=== PATIENT | female | born 1945 | race Caucasian/White ===

== ENCOUNTER 2016-10-22 08:50 | Day surgery (SDC) | payer MEDICARE, OTHER ==
[~2016-10-22 08:50] MED LIST: Buffered Lidocaine 0.9% SYRIN* 5 ML/SYR SYRINGE INTRADERM ONE; Famotidine IV* 10 MG/ML 2 ML (20 mg) IV ONE
[2016-10-22] MEDS ORDERED: Famotidine IV* 10 MG/ML 2 ML (20 mg) ONE (09:08)
[2016-10-22] MEDS ORDERED: Buffered Lidocaine 0.9% SYRIN* 5 ML/SYR SYRINGE ONE (09:08)
[2016-10-22] MEDS ORDERED: KETAMINE HCL* 50 MG/ML 10 ML VIAL ONE (10:21)
[2016-10-22] MEDS ORDERED: fentaNYL* 50 MCG/ML 2 ML VIAL (100 MCG VIAL) ONE (10:21)
[2016-10-22] MEDS ORDERED: Midazolam* 1 MG/ML 5 ML VIAL (5 MG) ONE (10:21)
[2016-10-22] MEDS ORDERED: Lidocaine 1% INJ* 10 MG/ML 30 ML SDV ONE (10:52)
[2016-10-22] MEDS ORDERED: Clindamycin 900 MG IVPREMIX(* 900 MG/50 ML SDV IV ONE (11:08)
[2016-10-22] MEDS ORDERED: Propofol* 10 MG/ML 20 ML BTL IV PUSH ONE (12:10)
[2016-10-22] MEDS ORDERED: Lidocaine 2% PF * 5 ML VIAL ONE (12:10)
[2016-10-22] MEDS ORDERED: fentaNYL* 50 MCG/ML 2 ML VIAL (100 MCG VIAL) IV PRN (12:22)
[2016-10-22] MEDS ORDERED: Ondansetron INJ* 2 MG/ML VIAL IV PRN (12:22)
[2016-10-22] MEDS ORDERED: oxyCODONE/Acetamin 5/325 MG* TAB PO PRN (12:22)
[2016-10-22] MEDS ORDERED: Morphine INJ* 2 MG/ML 1 ML SYRINGE IV PRN (12:22)
[2016-10-22] MEDS ORDERED: PROCHLORPERAZINE INJ 5 MG/ML 2 ML VIAL IV PRN (12:22)
--- NOTE | 2016-10-22 12:25 | SURGPN ---
Brief Operative Note - Surgery Procedures: OPERATIVE REPORT PRE-OP: Pseudomyxoma Peritonei POST-OP: Same PROCEDURE: Insertion of left chest wall 8F (subclavian vein) PowerPort SURGEON: MD Edinson ANESTHESIA:Local with MAC [place] ASST: none IVF: min EBL: min SPECIMEN: none DRAIN: none WOUND CLASS: One COMPLICATIONS: none TO PACU
[2016-10-22] MEDS ORDERED: Ondansetron INJ* 2 MG/ML VIAL ONE (12:55)
--- NOTE | 2016-10-22 12:59 | RAD ---
INDICATION: Status post left-sided port placement COMPARISON: Same day intraoperative fluoroscopy TECHNIQUE: Single AP portable view of the chest was obtained. FINDINGS: Image quality is compromised due to the relative inferiority of a portable chest x-ray. There is a left subclavian vein Mediport in place with the tip terminating at the cavoatrial junction. There is no pneumothorax. IMPRESSION: Left subclavian vein Mediport with tip terminating at the cavoatrial junction without radiographically apparent acute abnormalities.
--- NOTE | 2016-10-22 13:06 | RAD ---
INDICATION: Power port placement COMPARISONS: None relevant TECHNIQUE: Fluoroscopy was provided for a vascular access procedure. Total fluoroscopy time is: 31 seconds FINDINGS: A single spot image demonstrates a left sided chest port with the tip overlying the cavoatrial junction IMPRESSION: FLUOROSCOPY WAS PROVIDED FOR A VASCULAR ACCESS PROCEDURE CPT II Codes: 6045F
[2016-10-22 14:17] VITALS: BP 124/61
--- NOTE | 2016-10-23 13:03 | OP ---
CC: TREMAYNE Hernandez * DATE OF OPERATION: 10/22/16 - [facility] DATE OF : 49 SURGEON: Jeffrey Neves MD TACKER ELASTIC BAND: None. ANESTHESIOLOGIST: Bryn Shabazz MD ANESTHESIA: Local with monitored anesthesia care. 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 OPERATIVE PROCEDURE: Insertion of an 8-Azeri left subclavian vein PowerPort, needle in. ESTIMATED BLOOD LOSS: Minimal. SPECIMENS: None. COMPLICATIONS: None. DRAINS: None. WOUND CLASSIFICATION: I. DESCRIPTION OF PROCEDURE: Written informed consent was obtained, the left chest wall was marked with indelible ink, and preoperative antibiotics were administered. The patient was taken to the operating room and placed in the supine position. Sequential compression devices and a warming blanket were applied. The left and right chest and neck were prepped and draped in the usual sterile fashion. Time-out verification was completed. Next, the patient was placed in Trendelenburg position and 1% lidocaine with epinephrine was used to infiltrate the left anterior chest wall just below the midclavicular area. An 18-gauge Cook needle was then used to puncture the subclavian vein on the third pass with good blood return. The guidewire was inserted without difficulty and confirmed by fluoroscopy to be in the superior vena cava. Next, a small transverse incision was made just below the initial puncture site. The pocket was made inferiorly to this large enough to fit the port. The catheter was then tunneled from the port site to the puncture site and then placed into the central system at the junction of the superior vena cava in the right atrium using the dilator and the peel-away sheath technique. The catheter was then cut to the appropriate length and attached to the port, which was then placed in the subcutaneous pocket and sutured to the underlying fascia with two separate 2-0 Prolene sutures. The catheter withdrew blood well and was flushed nicely without difficulty. It was flushed with heparin solution. Hemostasis was assured. The wound was closed in layers with 3-0 and 4-0 Polysorb suture and then a right angled Rodriguez needle was used to access the port and once again flushed with heparin. This was secured with a sterile occlusive dressing in anticipation of using of chemotherapy administration tomorrow. The patient tolerated the procedure well, was taken to the recovery room in stable condition. Postprocedural chest x-ray showed the catheter to be in good position with no evidence of pneumothorax. [id number]/[facility] #: [id number] FREDY
== END 2016-10-22 14:33 | disposition home or self-care (01) ==
LOC: OR 08:50
PROVIDERS: ATTEND Surgery
DX: C78.6 Secondary malignant neoplasm of retroperitoneum and peritoneum (principal); I10 Essential (primary) hypertension
CPT/HCPCS: 71010; C1788; J1642; J2001; J2250; J2405; J2704; J3010

== ENCOUNTER 2018-11-24 13:23 | Inpatient (IN) | payer MEDICARE, BC ==
[2018-11-24] MEDS ORDERED: Ondansetron INJ* 2 MG/ML VIAL IV ONE (13:33)
[2018-11-24] MEDS ORDERED: NS 0.9% 1000 ML** 1,000 ML IV ONE (13:33)
[2018-11-24] MEDS ORDERED: Pantoprazole IV* 40 MG IV ONE (13:33)
--- NOTE | 2018-11-24 13:34 | ED ---
GI/ HPI - HPI Summary HPI Summary: This pt is a 72 y/o female presenting to [facility] c/o hematemesis today. 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 states that this morning she took a shower and felt like fainting. Pt laid on the bathroom floor after her shower and had an episode of emesis. Emesis is described as bloody and dark. Pt reports she has been feeling dehydrated, weak and has had black stools. Denies SOB. Denies nausea now. Pt states her abd distension has been unchanged. Pt was supposed to follow up with Dr. Miller today at 14:00 but was told to come to the ED instead. Denies taking any recent NSAIDs, such as aspirin or ibuprofen. Her last colonoscopy was in August 2016. - History of Current Complaint Stated Complaint: VOMITING BLOOD/WEAKNESS PER PT DAUGHTER Hx Obtained From: Patient Onset/Duration: Still Present Current Severity: Moderate Associated Signs and Symptoms: Positive: Hematemesis, Weakness - generalized, Vomiting, Melena. Negative: Fever Aggravating Factor(s): Nothing Alleviating Factor(s): Nothing - Allergy/Home Medications Allergies/Adverse Reactions: Allergies Allergy/AdvReac Type Severity Reaction Status Date / Time Penicillins Allergy Severe Hallucinati Verified 11/24/18 13:32 ons Home Medications: Home Medications Ascorbic Acid TAB* [Vitamin C TAB*] 1,000 mg PO DAILY 11/24/18 [History Confirmed 11/24/18] Calcium Carbonate [Calcium] 600 mg PO DAILY 11/24/18 [History Confirmed 11/24/18 ] Ferrous Sulfate TAB* 325 mg PO DAILY 11/24/18 [History Confirmed 11/24/18] Gabapentin CAP(*) [Neurontin 100 mg CAP(*)] 300 mg PO QPM 11/24/18 [History Confirmed 11/24/18] Multivitamins/Minerals TAB* [Theragran/minerals TAB*] 1 tab PO DAILY 11/24/18 [ History Confirmed 11/24/18] Mv,Grupo,Iron,Mn/Folic Acid/Chol [Hair, Skin and Nails Capsule] 1 each PO DAILY [History Confirmed 11/24/18] Potassium Chlor TAB (NF) [Kaon-Cl-10 TAB (NF)] 20 meq PO DAILY 11/24/18 [ History Confirmed 11/24/18] PMH/Surg Hx/FS Hx/Imm Hx Endocrine/Hematology History: Denies: Hx Diabetes Cardiovascular History: Denies: Hx Hypertension GI History: Reports: Other GI Disorders - tumors around intestines History: Reports: Other Problems/Disorders - hx of UTI, none in 3 years Denies: Hx Renal Disease Sensory History: Reports: Hx Cataracts - bilat very slow growing, Hx Contacts or Glasses Denies: Hx Hearing Aid Opthamlomology History: Reports: Hx Cataracts - bilat very slow growing, Hx Contacts or Glasses - Cancer History Cancer Type, Location and Year: COLON Hx Chemotherapy: No - will be starting after port placed on tues - Surgical History Surgery Procedure, Year, and Place: 38 years ago hysterectomy and appendix removal. 09/06/2016 exploratory of abdomen (for pseudomyexoma peritoni - removed fluid, but was unable to remove any of the tumors), colorectal- [facility]. POWERPORT 10/22/16 Hx Anesthesia Reactions: No - Family History Family History: Sister with hypercholesterolemia. - Social History Alcohol Use: None Substance Use Type: Reports: None Smoking Status (MU): Never Smoked Tobacco Review of Systems Negative: Fever, Chills Negative: Shortness Of Breath Gastrointestinal: Other - POSITIVE: melena, hematemesis Positive: Vomiting Positive: Weakness All Other Systems Reviewed And Are Negative: Yes Physical Exam - Summary Physical Exam Summary: VITAL SIGNS: Reviewed. GENERAL: Patient is a well-developed and pale female in no acute distress. Patient is not in any acute respiratory distress. HEAD AND FACE: No signs of trauma. No ecchymosis, hematomas or skull depressions. No sinus tenderness. EYES: PERRLA, EOMI x 2. Patient has pale conjunctiva. No nystagmus. EARS: Hearing grossly intact. Ear canals and tympanic membranes are within normal limits. MOUTH: Oropharynx within normal limits. NECK: Supple, trachea is midline, no adenopathy, no JVD, no carotid bruit, no c- spine tenderness, neck with full ROM. CHEST: Symmetric, no tenderness at palpation. LUNGS: Decreased breath sounds bilaterally. CVS: Regular rate and rhythm, S1 and S2 present, no murmurs or gallops appreciated. ABDOMEN: Soft, non-tender. Abdomen is significantly distended with decreased bowel sounds. No rebound, no guarding, and no masses palpated. RECTAL EXAM: Una Brothers, RN, is present as female grand jury deputy sheriff. Patient has melena on exam. EXTREMITIES: FROM in all major joints, no edema, no cyanosis or clubbing. NEURO: Alert and oriented x 3. No acute neurological deficits. Speech is normal and follows commands. SKIN: Dry and warm. Triage Information Reviewed: Yes Vital Signs On Initial Exam: Initial Vitals Temp Pulse Resp BP Pulse Ox 98.2 F 108 18 149/75 99 11/24/18 13:27 11/24/18 13:27 11/24/18 13:27 11/24/18 13:27 11/24/18 13:27 Vital Signs Reviewed: Yes Diagnostics - Laboratory Result Diagrams: 11/25/18 04:59 11/25/18 04:59 Lab Statement: Any lab studies that have been ordered have been reviewed, and results considered in the medical decision making process. - EKG 13:58 Cardiac Rate: NL - at 98 bpm EKG Rhythm: Sinus Rhythm EKG Comparison: Other - No prior EKG for comparison. Summary of EKG Findings: No ST elevations. Normal axis. GIGU Course/Dx - Course Assessment/Plan: This pt is a 72 y/o female presenting to [facility] c/o hematemesis today. 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 states that this morning she took a shower and felt like fainting. Pt laid on the bathroom floor after her shower and had an episode of emesis. Emesis is described as bloody and dark. Pt reports she has been feeling dehydrated, weak and has had black stools. Denies SOB. Denies nausea now. Pt states her abd distension has been unchanged. Pt was supposed to follow up with Dr. Miller today at 14:00 but was told to come to the ED instead. Denies taking any recent NSAIDs, such as aspirin or ibuprofen. Her last colonoscopy was in July/August 2016. Blood test shows a RBCs of 2.7, hemoglobin 7.1, hematocrit 22, MCV 77 and platelets 368. INR is 1.24, potassium 3.4, BUN 27, glucose 145, magnesium 1.7. The CRP is 71.6. The in the ED course the patient was immediately placed in a industrial ecologist, 2 IV access were obtained. I gave the patient IV fluids, Protonix 80 mg IV, and Zofran 8 mg for the nausea and vomiting. After these medications the patients symptoms have improved. Guaic is positive. Therefore, I believe that the patient is having a GI bleed. I discussed my physical exam and findings with Dr. Nguyen from oncology and he recommends a blood transfusion due to the active bleeding. He does not recommend a GI consult at this point because there were talks about hospice care at this point. Therefore I discussed the findings and test results with the patient and the patients family members and decide if the patient is a candidate for a colonoscopy. Therefore the patient will be admitted to Dr. Nguyen services. Consent for the blood transfusion was obtained and is in the chart. The benefits and risks were discussed with the patient. - Diagnoses Provider Diagnoses: GI bleed - Physician Notifications Discussed Care Of Patient With: Chad Nguyen Time Discussed With Above Provider: 14:46 Instructed by Provider To: Other - Discussed the case with Dr. Nguyen, oncologist , who reports they were talking about hospice care and no transfusion. Dr. Nguyen will come see the pt in the ED and recommends transfusion. - Critical Care Time Critical Care Time: 30-74 min Discharge ED - Sign-Out/Discharge Documenting (check all that apply): Patient Departure - Admit to [facility] Patient Received Moderate/Deep Sedation with Procedure: No - Discharge Plan Condition: Stable Disposition: ADMITTED TO [facility] - Billing Disposition and Condition Condition: STABLE Disposition: Admitted to [facility] - Attestation Statements Document Initiated by Batool: Yes Documenting Scribe: Renee Tomlinson Provider For Whom Batool is Documenting (Include Credential): Itz Duvall MD Scribe Attestation: Renee Acevedo scribed for Itz Duvall MD on 11/25/18 at 0749. Scribe Documentation Reviewed: Yes Provider Attestation: The documentation as recorded by the Renee brown accurately reflects the service I personally performed and the decisions made by me, Itz Duvall MD Status of Scribjenny Document: Viewed
[2018-11-24 14:00] LABS: ABS Lymphocytes 0.6 10^3/ul (1.0-4.8); ABS Monocytes 0.5 10^3/ul (0-0.8); ABS Neutrophils 6.9 10^3/ul (1.5-7.7); Hematocrit 22 % (35-47); Hemoglobin 7.1 g/dL (12.0-16.0); Lymphocyte % 7.9 %; Mean Corpuscular HGB Conc 33 g/dL (31-36); Mean Corpuscular Hemoglobin 26 pg (27-31); Mean Corpuscular Volume 77 fL (80-97); Mean Platelet Volume 6.5 fL (7.4-10.4); Platelet Count 368 10^3/uL (150-450); Red Blood Count 2.79 10^6 /uL (3.70-4.87); Red Cell Distribution Width 17 % (10-15); White Blood Count 8.1 10^3/uL (3.5-10.8)
[2018-11-24 14:15] LABS: Activated Partial Thrombo Time 31.8 seconds (26.0-38.0); INR 1.24 (0.82-1.09)
[2018-11-24 14:18] LABS: Albumin/Globulin Ratio 0.8 (1-3); BUN/Creatinine Ratio 45.8 (8-20); C Reactive Protein 71.6 mg/L (<8.01); Calcium 8.7 mg/dL (8.6-10.3); EGFR African American 121.9 (>60); EGFR Non-African American 100.8 (>60); Globulin 3.8 g/dL (2-4); Magnesium 1.7 mg/dL (1.9-2.7); Potassium 3.4 mmol/L (3.5-5.0); Total Bilirubin 0.4 mg/dL (0.2-1.0); Total Protein 6.8 g/dL (6.4-8.9)
[2018-11-24] MEDS ORDERED: Morphine INJ* 2 MG/ML 1 ML SYRINGE (TWO MG - NEW SYRINGE VERSION) IV PRN (15:46)
[2018-11-24] MEDS ORDERED: Acetaminophen TAB* 325 MG PO PRN (15:46)
[2018-11-24] MEDS ORDERED: Ondansetron INJ* 2 MG/ML VIAL IV PRN (15:46)
[2018-11-24] MEDS ORDERED: Magnesium Sulfate IV* 3 GM in NS 0.9% 100 ML* 100 ML IVPB ONE (15:52)
[2018-11-24] MEDS: Gabapentin CAP(*) 300 MG PO SCH (18:20)
[2018-11-24 19:36] LABS: ABS Lymphocytes 0.9 10^3/ul (1.0-4.8); ABS Monocytes 0.5 10^3/ul (0-0.8); ABS Neutrophils 5.5 10^3/ul (1.5-7.7); Hematocrit 25 % (35-47); Hemoglobin 8.3 g/dL (12.0-16.0); Lymphocyte % 13.3 %; Mean Corpuscular HGB Conc 34 g/dL (31-36); Mean Corpuscular Hemoglobin 27 pg (27-31); Mean Corpuscular Volume 79 fL (80-97); Mean Platelet Volume 6.7 fL (7.4-10.4); Platelet Count 366 10^3/uL (150-450); Red Blood Count 3.12 10^6 /uL (3.70-4.87); Red Cell Distribution Width 18 % (10-15)
[2018-11-24] MEDS: Pantoprazole* 80 mg IN NS 80 MG/250 ML BAG IV SCH (22:34)
[2018-11-24] MEDS: Zolpidem TAB* 5 MG PO SCH (22:40)
[2018-11-25] MEDS: NS 0.9% w/ 40 Meq KCL 1000 ML* 1,000 ML IV SCH ×3 (03:04→21:01)
[2018-11-25] MEDS: Pantoprazole* 80 mg IN NS 80 MG/250 ML BAG IV SCH ×2 (03:04→09:18)
[2018-11-25 03:56] LABS: Urine Appearance Cloudy; Urine Bacteria Absent (Absent); Urine Bilirubin Negative (Negative); Urine Blood Negative (Negative); Urine Color Yellow; Urine Glucose Negative (Negative); Urine Ketones Negative (Negative); Urine Nitrite Negative (Negative); Urine Protein Negative (Negative); Urine Red Blood Cell Trace(0-2/hpf) (Absent); Urine Specific Gravity 1.028 (1.010-1.030); Urine Squamous Epithelial Cell Present (Absent); Urine Urobilinogen Negative (Negative); Urine White Blood Cell 2+(11-20/hpf) (Absent)
[2018-11-25 05:32] LABS: ABS Lymphocytes 0.5 10^3/ul (1.0-4.8); ABS Monocytes 0.5 10^3/ul (0-0.8); ABS Neutrophils 2.6 10^3/ul (1.5-7.7); Eosinophil % 0.3 %; Hematocrit 24 % (35-47); Lymphocyte % 14.2 %; Mean Corpuscular HGB Conc 33 g/dL (31-36); Mean Corpuscular Hemoglobin 26 pg (27-31); Mean Corpuscular Volume 79 fL (80-97); Mean Platelet Volume 6.7 fL (7.4-10.4); Nucleated Red Blood Cells % 0.1; Platelet Count 299 10^3/uL (150-450); Red Blood Count 3.04 10^6 /uL (3.70-4.87); Red Cell Distribution Width 17 % (10-15); White Blood Count 3.6 10^3/uL (3.5-10.8)
[2018-11-25 05:51] LABS: Albumin 2.9 g/dL (3.2-5.2); Albumin/Globulin Ratio 0.8 (1-3); BUN/Creatinine Ratio 34.4 (8-20); Calcium 8.3 mg/dL (8.6-10.3); EGFR African American 117.3 (>60); Globulin 3.5 g/dL (2-4); Magnesium 2.2 mg/dL (1.9-2.7); Potassium 3.9 mmol/L (3.5-5.0); Total Protein 6.4 g/dL (6.4-8.9)
[2018-11-25] MEDS ORDERED: Vitamin B Complex TAB PO SCH ×2 (09:00→21:00)
[2018-11-25] MEDS ORDERED: Multivitamins/Minerals TAB PO SCH ×2 (09:00→21:00)
[2018-11-25] MEDS ORDERED: Cholecalciferol TAB* 1000 UNITS PO SCH ×2 (09:00→21:00)
[2018-11-25] MEDS ORDERED: fentaNYL* 50 MCG/ML 2 ML VIAL (100 MCG VIAL) ONE (15:29)
[2018-11-25] MEDS ORDERED: Midazolam* 1 MG/ML 10 ML VIAL (10 MG) ONE (15:29)
[2018-11-25] MEDS: Gabapentin CAP(*) 300 MG PO SCH (16:47)
--- NOTE | 2018-11-25 17:23 | CONS ---
GASTROENTEROLOGY CONSULT: DATE: CONSULTING PHYSICIAN: Gregorio Miller MD. REASON FOR CONSULT: Melena, guaiac positive with weakness and hemoglobin 7.1. HISTORY OF PRESENT ILLNESS: This 72-year-old woman, being treated for Pseudomyxoma peritonei, having had chemo 2 years ago, ending March 2017 after 6 months, 3 days ago developed a sense of weakness that was new to her She was dizzy in the shower and vomited up some dark material. She had had some indigestion and took Pepto-Bismol the night before. She had also taken some Pepcid. In general, she does not have acid indigestion or heartburn and has never had an upper endoscopy. She had been on a [place] cruise the week before. She was taking aspirin 81 mg for about 2 years, stopping sometime in 2016 when her new primary told her it was not necessary. She has no history of heart issues. She denies any NSAIDs and multiple trade names were reviewed. She has had colonoscopies through the years, most recently about 2 years ago. She eats a general diet. PAST MEDICAL HISTORY: 1. Status post remote appendectomy. 2. Total abdominal hysterectomy, 1980. 3. Pseudomyxoma - she has had second opinions at [facility] and also [place]. She has been deemed not to be a candidate for further chemo or surgery. SOCIAL HISTORY: She is . Lives with her and is a retired medical secretary with the [employer]. She was born and raised in [place], [place], and has a brother in [place] and sisters in [place] and [place]. On the recent cruise in the [place] ([facility], [place], and [place]), she was not ill. She ate sumptuously and references a lot of fruit but really had no trouble during that time. REVIEW OF SYSTEMS: No history of seizure, CVA, TIA, numbness, tingling, VT, heart murmur, syncope, hepatitis, jaundice, prior GI bleeding, fall, or fracture. PHYSICAL EXAM: She is a very pleasant, slightly pale, older woman in no overt distress with a protuberant abdomen. HEENT exam is unremarkable. She has no adenopathy. Her lungs are clear and heart sounds are regular. Breasts and Pelvic Exam: Deferred. The abdomen is grossly extended, firm, with a somewhat variable doughy feeling. Rectal: Deferred - heme + in ER Extremities: Show 1 + edema. LABS: After transfusion today, hemoglobin 8.0, MCV 79 (had been drifting down from the mid 80s ever since fall 2016), platelets 299, INR 1.24. Albumin 2.9. LFTs normal. Recent labs include CEA 128.5, July 2018. IMPRESSION: Melena (? Pepto Bismol in part) and slightly elevated BUN (27) in a woman with an unusual peritoneal abdominal malignancy. She has been having some dyspepsia, and an ulcer or erosive gastroesophageal reflux disease is possible though she has no particular risk factors for PUD. A thorough history does not reveal any NSAID use. EGD indicated and doubtful she is a candidate for anything else endoscopically. [id number]/[facility] #: [id number] [facility]
--- NOTE | 2018-11-25 20:37 | PRO ---
DATE: 11/25/18 - ROOM #451 REFERRING PHYSICIAN: Gregorio Miller.* PROCEDURE: Upper gastrointestinal endoscopy through to third portion of the duodenum. INDICATION: This 72-year-old woman presented to the hospital anemic, and she had an episode of coffee-ground emesis a couple of days before and also passed dark stool that was heme-positive. She had taken some Pepto-Bismol in recent days. She had taken some Pepcid, which is an infrequent occurrence when she feels some dyspepsia. See separate consult. She is not on any long-term daily gastrointestinal remedy. ENDOSCOPIST: Dr. Henry. MEDICATIONS: Midazolam 6.5, fentanyl 75. FINDINGS: She is a chronically ill-appearing, pale woman with a distended, firm abdomen from her underlying malignancy. She was positioned left side down and moderate sedation induced with sequential doses of medication. She tolerated the exam well. EGD: Larynx - symmetric, limited views. Esophagus - easily entered and the mucosa is normal in the upper and mid esophagus and then the EG junction at 38 to 40 had some significant erosions extending up a centimeter and a half. There was then a small hiatal hernia. Stomach - the mucosa appears generally normal and the rugal folds are intact and without erosions or bleeding. There is, however, limited distensibility and the appearance of extrinsic compression in many areas. The antrum in particular is compressed. Duodenum - the pylorus, bulb, and second through fourth portions have normal mucosa and valvulae, though there is the sense of extrinsic compression. There was no indication to biopsy. IMPRESSION: 1. Small hiatal hernia. 2. Moderate erosive gastroesophageal reflux disease. 3. Extrinsic compression. 4. Presentation with hemoglobin 7.1 from a baseline in the upper 9s to 10 ( 10.0 on 08/20/18) source unclear, although there may have been some bleeding from the erosive gastroesophageal reflux disease and there may have been some progression of anemia of chronic disease. There certainly is not a major gastritis. Placing her on omeprazole 40 mg or Protonix 40 mg would appear indicated. [id number]/[facility] #: [id number] [facility]
[2018-11-25] MEDS: Zolpidem TAB* 5 MG PO SCH (21:10)
[2018-11-26] MEDS: Pantoprazole* 80 mg IN NS 80 MG/250 ML BAG IV SCH ×2 (01:06)
[2018-11-26] MEDS: NS 0.9% w/ 40 Meq KCL 1000 ML* 1,000 ML IV SCH (05:58)
[2018-11-26 06:03] LABS: ABS Lymphocytes 0.8 10^3/ul (1.0-4.8); ABS Monocytes 0.4 10^3/ul (0-0.8); ABS Neutrophils 3.3 10^3/ul (1.5-7.7); Eosinophil % 0.8 %; Hematocrit 24 % (35-47); Hemoglobin 8.1 g/dL (12.0-16.0); Lymphocyte % 16.5 %; Mean Corpuscular HGB Conc 34 g/dL (31-36); Mean Corpuscular Hemoglobin 27 pg (27-31); Mean Corpuscular Volume 81 fL (80-97); Mean Platelet Volume 6.7 fL (7.4-10.4); Nucleated Red Blood Cells % 0.1; Platelet Count 288 10^3/uL (150-450); Red Blood Count 2.96 10^6 /uL (3.70-4.87); Red Cell Distribution Width 18 % (10-15); White Blood Count 4.6 10^3/uL (3.5-10.8)
[2018-11-26 06:17] LABS: Calcium 8.4 mg/dL (8.6-10.3); EGFR African American 115.1 (>60); EGFR Non-African American 95.2 (>60); Potassium 4.2 mmol/L (3.5-5.0)
[2018-11-26 11:54] LABS: Total Iron Binding Capacity 190 mcg/dL (250-450); Transferrin 136 mg/dL (203-362)
[2018-11-26 11:58] LABS: % Iron Saturation 11 % (15-55); Iron < 20 ug/dL (50-212)
[2018-11-26 12:14] LABS: Ferritin 498.7 ng/mL (11-307)
--- NOTE | 2018-11-26 12:52 | DS ---
DISCHARGE SUMMARY: DATE OF ADMISSION: 11/24/18 DATE OF DISCHARGE: 11/26/18 PRIMARY ONCOLOGIST AND ATTENDING PHYSICIAN: Dr. Gregorio Miller * (DICTATED BY TAJ VACA) CONSULTING BILLING MANAGER: Dr. Alvarado Henry. DISCHARGING PROVIDER: TAJ Vaca. PRIMARY DISCHARGE DIAGNOSES: 1. Gastrointestinal bleed with moderate erosive esophagitis seen on EGD. 2. Pseudomyxomatous peritonei. DISCHARGE MEDICATIONS: 1. Vitamin C 1000 mg p.o. daily. 2. Calcium carbonate 600 mg p.o. daily. 3. Vitamin D3 1000 units p.o. daily. 4. Ferrous sulfate 325 mg p.o. daily. 5. Gabapentin 300 mg p.o. daily. 6. Hydrochlorothiazide 25 mg once daily. 7. Multivitamin 1 capsule p.o. daily. 8. Magnesium oxide 400 mg p.o. daily. 9. Potassium chloride 20 mEq p.o. daily. 10. Vitamin B complex 1 tablet p.o. daily. 11. Omeprazole 40 mg p.o. daily. HOSPITAL IMAGING: None. PROCEDURE FINDINGS: EGD 11/25/18 showed moderate erosive esophagitis without active bleeding, no acute findings found within the stomach or duodenum. HOSPITAL COURSE: This is a 72-year-old female with pseudomyxomatous peritonei followed by Dr. Miller, who was not currently on any therapy, who presented to the emergency department with complaints of fatigue and weakness. She had been on a cruise with family, returned just a few days prior to her admission and had reported that she was having somewhat of a stomach ache and an increased abdominal pain with some mild nausea and headache. Her oral intake had been as good with travel. She became increasingly weak and could not stand up, at which point she presented to the emergency department for evaluation. She was somewhat hypertensive and also tachycardic on her initial vitals. Hemoglobin was 7.1 on initial presentation with a baseline around 9 to 10 g/dL, last measured on 08/20/18 at 10. The patient denied melena. Her stool was Hemoccult positive. She received 2 units of packed red blood cells and her hemoglobin improved from 7.1 to 8.3 and subsequently remained stable the remainder of her hospitalization. She was initially treated with an IV Protonix drip and solar sales estimator, Dr. Henry was asked to see the patient. She went for upper endoscopy, which revealed moderate erosive esophagitis, but no evidence of active bleeding. Dr. Henry recommended PPI. There was no evidence of tumor invasion or other complication apart from causing some extrinsic compression upon the stomach noted during the exam. The patient has been on oral iron supplementation for quite some time. Her last iron studies are not available for review in [facility]. She is noted to have a new microcytosis indicative of this acute drop as being a result of iron deficiency likely due to GI loss over the last couple of months. DISPOSITION AND FOLLOWUP PLAN: The patient is being discharged to home in stable condition where she lives with her . She will be seen in the Oncology Clinic next week with Rosalba Ramsey NP. Plan to repeat a CBC at that time. Iron studies are pending at the time of discharge. If she is deficient despite oral supplementation, can consider IV infusion and continuation of oral supplementation as we monitor iron studies moving forward. TAJ VACA [id number]/[facility] #: [id number] [facility]
[2018-11-26 12:57] VITALS: BP 122/58
== END 2018-11-26 12:55 | disposition home or self-care (01) | DRG 381 ==
LOC: ED 13:23 → MEDTELE 15:46
PROVIDERS: ADMIT Internal Medicine Hematology & Oncology; ATTEND Internal Medicine Hematology & Oncology
PROC: 30233N1 Transfusion of Nonautologous Red Blood Cells into Peripheral Vein, Percutaneous Approach (ICD-10-PCS; principal; 2018-11-24)
PROC: 0DJ08ZZ Inspection of Upper Intestinal Tract, Via Natural or Artificial Opening Endoscopic (ICD-10-PCS; 2018-11-25)
DX: K22.11 Ulcer of esophagus with bleeding (principal); C78.6 Secondary malignant neoplasm of retroperitoneum and peritoneum; K44.9 Diaphragmatic hernia without obstruction or gangrene; K21.0 Gastro-esophageal reflux disease with esophagitis; D63.8 Anemia in other chronic diseases classified elsewhere; Z92.21 Personal history of antineoplastic chemotherapy; Z90.710 Acquired absence of both cervix and uterus; Z88.0 Allergy status to penicillin; R00.0 Tachycardia, unspecified; D50.9 Iron deficiency anemia, unspecified; E86.0 Dehydration; H26.9 Unspecified cataract; Z87.440 Personal history of urinary (tract) infections; Z83.49 Family history of other endocrine, nutritional and metabolic diseases; Z90.722 Acquired absence of ovaries, bilateral; Z72.89 Other problems related to lifestyle; Z80.0 Family history of malignant neoplasm of digestive organs; Z80.1 Family history of malignant neoplasm of trachea, bronchus and lung
CPT/HCPCS: 36415; 80048; 80053; 81003; 81015; 82140; 82150; 82272; 82728; 83540; 83550; 83605; 83690; 83735; 84484; 85025; 85610; 85730; 86140; 86850; 86900; 86901; 86922; 87086; 93005; 99156; 99157; 99223; 99239; 99283; A9270-GY; G8978-GP-CH; G8979-GP-CH; G8980-GP-CH; J2250; J2405; J3010; J3475; P9040